=== PATIENT | female | born 1985 | race Caucasian/White ===

== ENCOUNTER 2020-06-18 08:57 | Emergency (ER) | payer OTHER, SELFPAY ==
[2020-06-18 09:14] VITALS: BP 141/81; PULSE 60; RESP 18; TEMP 37.2; O2SAT 98; BMI 29.2
--- NOTE | 2020-06-18 09:22 | ED.NECK ---
HPI - Neck Pain/Injury General Chief Complaint: Neck Pain/Injury Stated Complaint: UPPER BACK PAIN Time Seen by Provider: 06/18/20 09:22 History of Present Illness HPI Narrative: Patient complains of left neck trapezius and upper back pain radiating into the left hand, no weakness no numbness, no chest pain no abdominal pain no shortness of breath Related Data Previous Rx's Medication Instructions Recorded acetaminophen 1,000 mg PO Q6H PRN #30 tab 06/18/20 ibuprofen 600 mg PO Q6H PRN #20 tab 06/18/20 oxycodone 5 mg PO Q6H PRN #10 tab 06/18/20 Allergies Allergy/AdvReac Type Severity Reaction Status Date / Time No Known Allergies Allergy Verified 06/18/20 09:19 [No Known Allergies*] Review of Systems Review of Systems: Positive for left-sided neck and upper back pain Negatives are no fever no chills no dizziness no weakness no headache no numbness or weakness, no changes to bowel or bladder no chest pain no shortness of breath no palpitations no abdominal pain no nausea or vomiting no dysuria no frequency of urination no burning with urination Yes all other systems are reviewed and are negative [facility] Past Medical History Source: nursing notes reviewed Medical History (Updated 06/19/20 @ 00:01 by Background Daemon) No known health problems Social History Social History Advance Directives: No Advance Directives Information Provided: No Patient : No Physical Exam Vital Signs: Vital Signs: Last Vital Signs Temp 99.0 F 06/18/20 09:14 Pulse 57 06/18/20 10:03 Resp 18 06/18/20 10:03 BP 141/81 H 06/18/20 09:14 Pulse Ox 98 06/18/20 09:14 Body Mass Index 29.2 General appearance is no acute distress Head is normocephalic atraumatic The neck has left sided paraspinal tenderness left trapezius tenderness there is also some left upper back tenderness, skin is normal no redness no vesicular rash no wound There is no bony tenderness The chest is clear to auscultation bilateral with full symmetric breath sounds, no tenderness to chest wall Heart no murmur Abdomen soft nontender Back exam there is some left upper back tenderness below the trapezius and between the scapula and the midline, again skin is normal Skin no rashes Neuro no focal motor or sensory deficit, gait 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, 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 and symmetrical and sensation is intact and symmetrical in both hands Course Course Course Narrative: Patient with left-sided neck pain radiating to fingers is treated for symptom relief of cervical radiculopathy and advised to follow up with primary doctor Discharge Plan Discharge Clinical Impression: Cervical radiculopathy Patient Disposition: Home, Self-Care Additional Instructions: Because of the pain shooting down the arm which is usually from a pinched nerve we are starting prednisone which in some patients reduces inflammation around the nerve and helps reduce pain Follow with primary doctor for further evaluation Return to the ER any time if worse Prescriptions: New oxycodone 5 mg tablet 5 mg PO Q6H PRN (Reason: pain) Qty: 10 RF: 0 acetaminophen 500 mg tablet 1,000 mg PO Q6H PRN (Reason: pain) Qty: 30 RF: 0 ibuprofen 600 mg tablet 600 mg PO Q6H PRN (Reason: pain) Qty: 20 RF: 0 Interventions: ED Discharge Assessment Last Done: 06/18/20 10:03 Discharge Date/Time: 06/18/20 10:04
[2020-06-18] MEDS: predniSONE 20 MG TABLET 60 MG PO (09:47)
[2020-06-18] MEDS: Ketorolac Tromethamine 30 MG/ML VIAL IM (09:48)
[2020-06-18 10:03] VITALS: PULSE 57; RESP 18
== END 2020-06-18 10:04 | disposition home or self-care (01) ==
PROVIDERS: Emergency Provider Emergency Medicine; PCP Internal Medicine
DX: M54.12 Radiculopathy, cervical region (principal); M54.6 Pain in thoracic spine
CPT/HCPCS: 96372; 99283; 99284; J1885

== ENCOUNTER 2020-06-24 19:19 | Emergency (ER) | payer OTHER, SELFPAY ==
[2020-06-24 19:47] VITALS: BP 113/72; PULSE 71; RESP 16; TEMP 36.7; O2SAT 96; BMI 29.2
== END 2020-06-24 21:35 | disposition left against medical advice (07) ==
PROVIDERS: Emergency Provider Emergency Medicine; PCP Internal Medicine
DX: M54.6 Pain in thoracic spine (principal)
CPT/HCPCS: 99281; 99284

== ENCOUNTER 2021-09-01 11:15 | Emergency (ER) | payer OTHER, SELFPAY ==
--- NOTE | ~2021-09-01 | XR_ITS ---
EXAMINATION: XR FINGER, LEFT CLINICAL INFORMATION: Laceration first knuckle left fifth digit COMPARISON: None TECHNIQUE: 4 views of the left finger. FINDINGS: The bones and soft tissues are normal. No fracture. Alignment is anatomic. Joint spaces are maintained. XR/XR finger LT min 2V IMPRESSION: Normal finger radiographs.
[2021-09-01 13:18] VITALS: BP 149/90; PULSE 82; RESP 18; TEMP 36.8; O2SAT 100; BMI 27.4
--- NOTE | 2021-09-01 14:17 | ED.WOUNDLAC ---
HPI - Wound/Laceration General Chief Complaint: Wound/Laceration Stated Complaint: cut L hand Time Seen by Provider: 09/01/21 14:12 Source: patient Mode of arrival: ambulatory History of Present Illness HPI narrative: 36-year-old female with no significant past medical history presenting to the ED complaining of laceration to left 5th digit s/p punching glass table around 10:00. Tetanus unknown/out of date. Patient reports associated paresthesias. Reports pain with ROM. Denies injury to other area. Onset (ago): hour(s) Related Data Previous Rx's Medication Instructions Recorded oxycodone 5 mg tablet 5 mg PO Q6H PRN pain #10 tabs 06/18/20 acetaminophen 500 mg tablet 500 mg PO Q6H PRN pain 10 days #30 07/02/20 tabs ibuprofen 600 mg tablet 600 mg PO Q6H PRN pain 10 days #07/02/20 tabs Allergies Allergy/AdvReac Type Severity Reaction Status Date / Time No Known Allergies Allergy Verified 09/01/21 13:17 [No Known Allergies*] Review of Systems Review of Systems: Constitutional: No Weight loss, No Fever, No Chills ENT/Mouth: No Ear Pain, No Nasal Congestion, No sore throat, No Rhinorrhea, No Swallowing Difficulty Cardiovascular: No Chest Pain, No SOB Respiratory: No Cough, No Sputum, No Wheezing Gastrointestinal: No Nausea, No Vomiting, No Diarrhea, No Constipation, No Abdominal pain Genitourinary: No Dysuria, No Urinary Frequency, No Flank Pain Musculoskeletal: + joint pain, No Myalgias, No Joint Swelling Skin: + Skin Lesions, No rash Neuro: No Weakness, No Numbness, + Paresthesias Yes all other systems are reviewed and are negative Constitutional: Constitutional: Reports as per HPI Neurologic: Denies Sensory deficit (Neuro) [facility] Past Medical History Attestation statement: The following information was validated with the patient. Medical History (Updated 09/01/21 @ 15:50 by THOMAS Weaver) No known health problems Social History Social History Alcohol intake: never Advance Directives: No Advance Directives Information Provided: Yes Physical Exam Vital Signs: Vital Signs: Last Vital Signs Temp 98.3 F 09/01/21 13:18 Pulse 82 09/01/21 13:18 Resp 18 09/01/21 13:18 BP 149/90 H 09/01/21 13:18 Pulse Ox 100 09/01/21 13:18 O2 Del Method 09/01/21 13:18 BMI result Body Mass Index 27.4 Const: General: cooperative, healthy appearing and no acute distress Orientation/consciousness: patient oriented x3 Limitations: no limitations HEENT: Head: Yes normal to inspection and Yes atraumatic Ears: hearing grossly normal bilaterally General nose exam: Normal external nose present Face and sinus: Yes normal facial exam Eyes: General: appearance normal, both eyes and all related structures EOM: EOMs intact bilaterally Neck: Neck: Yes normal visual inspection and Yes no meningeal signs Resp: Effort & Inspection: normal respiratory effort and no respiratory distress Cardio: Rate: regular rate Heart sounds: S1 normal heart sound present and S2 normal heart sound present Peripheral pulses: radial pulses present and ulnar radial pulses present Skin: Rashes: no rashes Neuro: General: patient oriented x3, tone normal, moves all extremities and no meningeal signs Gait exam (Neuro): Normal gait present Sensory Exam: No Sensory deficit (Neuro) Extrem: Other: 1.5 cm laceration noted to left MCP. No visible underlying structures. Full range of motion to digit intact. Sensation intact to light touch. [id number]-[id number] opposition intact Course Course Course Narrative: XR finger LT min 2V IMPRESSION: Normal finger radiographs. Results discussed with patient including worrisome signs and symptoms and strict return precautions, and when to return to the emergency department. They verbalized understanding and feel safe for discharge at this time. MDM - Wound/Laceration MDM Narrative Medical decision making narrative: 36-year-old female with no significant past medical history presenting to the ED complaining of laceration to left 5th digit s/p punching glass table around 10:00AM. On exam vital signs stable, NAD, nontoxic appearing, physical exam as above, laceration needing repair. Will update tetanus. Plan: X-ray to rule out fracture/foreign body, tetanus update, repair wound Differential Diagnosis Differential diagnosis: Likely laceration Medical Records Attestation: I reviewed the patient's medical records. Lab Data Attestation: I reviewed the patient's lab results. Procedures Laceration Laceration 1: Site: hand Side (If applicable): left Size (cm): 1.5 Description: linear Depth: simple, single layer Local Anesthetic: lidocaine 1% Amount of anesthesia used (mL): 3.5 Pre-repair: wound explored Skin layer closed with: nylon Size (cm): 4-0 Number of sutures: 3 Technique: simple, interrupted Discharge Plan Discharge Clinical Impression: Laceration Patient Disposition: Home, Self-Care Instructions: Finger Laceration (ED) Additional Instructions: Your finger x-ray was unremarkable Your wounds were repaired today in the emergency department. Keep dry and clean. You need to return to any emergency department or urgent care in 7-10 days for suture removal Apply bacitracin and or Neosporin daily Once sutures are removed apply anti scar cream like Mederma If area begins look infected, is red, there is drainage, streaking, or you have fever please return to the emergency department Prescriptions: No Action acetaminophen 500 mg tablet 500 mg PO Q6H PRN (Reason: pain) 10 Days Qty: 30 2RF ibuprofen 600 mg tablet 600 mg PO Q6H PRN (Reason: pain) 10 Days Qty: 30 1RF Rx Instructions: TAKE WITH FOOD oxycodone 5 mg tablet 5 mg PO Q6H PRN (Reason: pain) Qty: 10 0RF Rx Instructions: Narcotic, no driving for 6 hours after taking this medication Referrals: ED Physician,Generic [Emergency Provider] - 1 week (Return to any emergency department or urgent care in 7-10 days for suture removal)
[2021-09-01] MEDS: Diphth,Pertus(ACell),Tet Adult 0.5 ML SYRINGE IM (15:49)
[2021-09-01] MEDS: Lidocaine HCl 1 % MPF 5 ML VIAL SUBCUT (15:49)
== END 2021-09-01 16:21 | disposition home or self-care (01) ==
PROVIDERS: Emergency Provider Emergency Medicine; PCP Nurse Practitioner Family
DX: S61.217A Laceration without foreign body of left little finger without damage to nail, initial encounter (principal); W25.XXXA Contact with sharp glass, initial encounter; Y93.9 Activity, unspecified; Y92.9 Unspecified place or not applicable; Y99.9 Unspecified external cause status
CPT/HCPCS: 12001; 73140; 90471; 90715; 99283; 99284

== ENCOUNTER 2023-01-16 12:40 | Outpatient (AMB) | payer OTHER, SELFPAY ==
--- NOTE | 2023-01-16 13:00 | A.OFFPC_ITS ---
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 Pt have not seen a PCP for over 20 years. 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 Accompanied by: Self / Same As Patient Is last menstrual period known: Yes Last menstrual period: 01/08/23 Allergies No Known Allergies [No Known Allergies*] Allergy (Verified 01/16/23 13:19) Medication List - Last Reconciled 01/16/23 by HOLGER Mcqueen No Known Home Meds Tobacco use date assessed: 01/16/23 Dental Screening Dental Screen Date: 01/16/23 Did you have a dental visit in the last 12 months?: No Did you have a dental problem in the last 6 months where you did not have access to dental care?: No Was dental information given to patient?: Patient declined HPI HPI Comments 2 History of Present Illness0 Details 37-year-old female new patient presents today for physical exam. Past medical history significant for chronic upper back pain and cervical degenerative disc disease. Patient has been seen in the emergency room for this in the past. Patient denies any pain at this time. Will send ibuprofen 600 mg as needed for pain. 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 Patient scoring positive on PHQ-9 and suzanna-7, patient reports she is currently having anxiety and some depression as she is going through a divorce after being for 20 years. Offered referral to counseling patient declined the need for counseling or medication at this time states she does have family members that she can reach out to to talk with about how she is feeling. Patient reports raised 1st matter X 2 located to right abdomen 1 located on left biceps. Patient reports right abdomen raised nevi are becoming bothersome as certain way she sits it will get caught in her bra and causes discomfort, requesting referral to dermatology for removal. Referral entered. Unknown last Pap smear, referral entered OBGYN. Recommended eye exam. Fasting lab work ordered. [facility] Medical History (Updated 01/16/23 @ 13:37 by HOLGER Mcqueen) Encounter for prophylactic removal of fallopian tube No known health problems Family History Mother Hypothyroidism Acute arthritis Father No problems noted. 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 1. Little interest or pleasure in doing things: several days 2. Feeling down, depressed, or hopeless: nearly every day 3. Trouble falling or staying asleep, or sleeping too much: more than half the days 4. Feeling tired or having little energy: several days 5. Poor appetite or overeating: more than half the days 6. Feeling bad about yourself - or that you are a failure or have let yourself or your family down: more than half the days 7. Trouble concentrating on things, such as reading the newspaper or watching television: nearly every day 8. Moving or speaking so slowly that other people could have noticed. Or the opposite - being so fidgety or restless that you have been moving around a lot more than usual: not at all 9. Thoughts that you would be better off or of hurting yourself in some way: not at all Total score: 14 Depression Screening Interpretation: Positive Depression Screening Done: Yes 11090 - PHQ-9 Billing: Yes Source: Developed by Drs. Andrew Gonzales, Margaret Noel, Jhon Concepcion and colleagues, with an educational jmi from [employer]. Thrive Questionnaire Date Thrive assessed: 01/16/23 I am a: Patient What is your living situation today?: I have a steady place to live Within the past 12 months, did the food you bought not last and you didn't have the money to get more?: Never true Within the past 12 months, did you worry whether your food would run out before you got money to buy more?: Never true Do you have trouble paying for medicines?: No Do you have trouble getting transportation to medical appointments?: No Do you have trouble paying your heating and electricity bill?: No Do you have trouble taking care of your child, family member or friend?: No Do you have trouble with day-to-day activities such as bathing, preparing meals, shopping, managing finances, etc.?: No Are you currently unemployed and looking for a job?: No Are you interested in more education?: No Please select the resources that you would like help with: None Currently or been in a relationship where the following occur: no concerns reported AUDIT C Alcohol Use Questionnaire (AUDIT-C) 1. How often do you have a drink containing alcohol?: 2-4 times a month 2. How many drinks containing alcohol do you have on a typical day when you are drinking?: 3 or 4 3. How often do you have six or more drinks on one occasion?: Never Total Score: 3 SUZANNA-7 AMB Questionnaire SUZANNA-7 Date SUZANNA - 7 assessed: 01/16/23 Feeling nervous, anxious, or on edge: 3 = Nearly every day Not being able to stop or control worryin = Nearly every day Worrying too much about different things: 3 = Nearly every day Trouble relaxin = Nearly every day Being so restless that it is hard to sit still: 0 = Not at all Becoming easily annoyed or irritable: 3 = Nearly every day Feeling afraid as if something awful might happen: 1 = Several days Total SUZANNA-7 score (0-4 normal; 5-9 mild; 10-14 moderate; 15-21 severe): 16 Source: Developed by Drs. Andrew Gonzales, Margaret Noel, Jhon Concepcion and colleagues, with an educational jim from [employer]. SUZANNA-7 Assessment Billing SUZANNA-7 Assessment Tool: SUZANNA-7 Assessment 69433 Review of Systems Const Denies chills, Denies fatigue, Denies fever(s) and Denies poor appetite Eyes Denies no additional complaints ENT Reports Normal hearing present Card Denies chest pain, Denies syncope, Denies rapid heart rate and Denies dyspnea Resp Denies cough and Denies dyspnea GI Denies change in stool character, Denies constipation, Denies diarrhea, Denies nausea and Denies vomiting Denies urinary frequency, Denies dysuria and Denies urinary urgency Neuro Reports Normal hearing present, Denies confusion and Denies syncope Psych Denies confusion Endo Denies fatigue Physical exam (Primary Care) Vital Signs: Last Vital Signs Pulse 70 01/16/23 13:09 BP 100/62 01/16/23 13:09 Pulse Ox 96 01/16/23 13:09 Oxygen Delivery Method Room Air 01/16/23 13:09 BMI result Body Mass Index 26.5 Tobacco/Smoking Status: Tobacco use Status Tobacco use date assessed 01/16/23 01/16/23 13:08 Patient Tobacco Use Status Current everyday Tobacco 01/16/23 13:21 Tobacco use type Cigarette 01/16/23 13:21 e-Cigarette/Vaping Use Never Used 01/16/23 13:21 PHQ-9: PHQ-9 Score PHQ-9: Total score 14 01/16/23 14:15 Depression Screening Interpretation: Positive Thrive Assessment: Date of Thrive Assessment Date Thrive assessed 01/16/23 01/16/23 13:08 Currently or been in a relationship where the following occur: no concerns reported Const General: cooperative and healthy appearing; No acute distress or confusion Orientation/consciousness: patient oriented x3 and No confusion HENMT Head: Yes normocephalic and Yes atraumatic Ears: external ears normal and TM's normal bilaterally General nose exam: Normal external nose present and Normal nasal mucous membranes and turbinates present Face and sinus: Yes normal facial exam and Yes sinuses nontender Mouth: moist mucous membranes Throat: Yes tonsils normal Eyes Conjunctivae: conjunctivae normal Sclerae: sclerae normal Pupils: Equal, round and reactive pupils present and Pupils normal by confrontation EOM: EOMs intact bilaterally Direct Ophthalmoscopy: normal light reflex Neck Neck: Yes no lymphadenopathy and Yes supple Thyroid: Thyroid normal Chest Chest palpation & inspection: normal inspection of the chest Resp Effort & Inspection: normal respiratory effort Auscultation: clear to auscultation bilaterally, no crackles, no rhonchi and no wheezes Cardio Rate: regular rate Rhythm: regular rhythm Peripheral pulses: radial pulses present and dorsalis pedis present GI Inspection: Yes normal to inspection Palpation (GI): Soft to palpation, nontender and No hepatosplenomegaly present Auscultation: normoactive bowel sounds Skin General skin exam: no rashes or lesions noted Full body images: 2 1. Raised nevi 2. Raised nevi 3. Raised nevi Neuro General: patient oriented x3 and No confusion Cranial nerves: Yes CN's II-XII intact bilaterally, Yes Equal, round and reactive pupils present and Yes Normal hearing present Cognition (Neuro): normal cognition Gait exam (Neuro): Normal gait present Motor exam (neuro): 5/5 motor strength present throughout Deep tendon reflexes (DTR's): Right brachioradialis reflex intensity grade: 2+, Left brachioradialis reflex intensity grade: 2+, Right patellar reflex intensity grade: 2+ and Left patellar reflex intensity grade: 2+ Extrem General: No edema Assessment and Plan Assessment & Plan (1) Degenerative disc disease, cervical: Code(s): M50.30 - Other cervical disc degeneration, unspecified cervical region Plan: Ibuprofen 600 mg sent to patient pharmacy to use as needed for pain. Patient advised to take medication with food to prevent GI upset. Offered referral to physical therapy for neck pain however patient declines at this time. Patient reports she currently follows with the chiropractor periodically for this. (2) Chronic upper back pain: Code(s): M54.9 - Dorsalgia, unspecified; G89.29 - Other chronic pain Plan: Ibuprofen sent to patient's pharmacy. (3) Atypical nevi: Code(s): D22.9 - Melanocytic nevi, unspecified Plan: Referral entered to dermatology as requested by patient for removal. (4) Physical exam, annual: Code(s): Z00.00 - Encounter for general adult medical examination without abnormal findings Plan: Fasting blood work ordered. Eye exam recommended. Referral entered OBGYN for Pap smear screening. Plan Follow-up in 1 year sooner if needed Orders: Orders 2 Comprehensive [place]. Panel Fast Today Z13.1 - Encounter for screening for diabetes mellitus Lipid Panel Today Z13.220 - Encounter for screening for lipoid disorders TSH reflex Free T4 Today Z13.29 - Encounter for screening for other suspected endocrine disorder Vitamin D 25-OH Total Today Z13.21 - Encounter for screening for nutritional disorder Complete Blood Count Auto Diff Today Z13.0 - Encounter for screening for diseases of the blood and blood-forming organs and certain disorders involving the immune mechanism Referrals 2 Dermatology Referral D22.9 - Melanocytic nevi, unspecified [employer] Referral Z12.4 - Encounter for screening for malignant neoplasm of cervix Medications: New 2 ibuprofen 600 mg PO Q8H PRN 30 tabs 0RF pain G89.29 - Other chronic pain, M50.30 - Other cervical disc degeneration, unspecified cervical region, M54.9 - Dorsalgia, unspecified Coding Level of Care Code New Pt Prev Care 18-39yr([id number] Diagnoses Degenerative disc disease, cervical M50.30 Chronic upper back pain M54.9; G89.29 Atypical nevi D22.9 Physical exam, annual Z00.00 Additional Codes SUZANNA-7 Assessment Billing - SUZANNA-7 Assessment Tool: SUZANNA-7 Assessment [id number] ([id number])
[2023-01-16 13:09] VITALS: BP 100/62; PULSE 70; O2SAT 96; BMI 26.5
== END 2023-01-16 13:39 | disposition home or self-care (01) ==
PROVIDERS: PCP Nurse Practitioner Family; Visit Provider Nurse Practitioner Family
DX: M50.30 Other cervical disc degeneration, unspecified cervical region (principal); M54.9 Dorsalgia, unspecified; G89.29 Other chronic pain; D22.9 Melanocytic nevi, unspecified; Z00.00 Encounter for general adult medical examination without abnormal findings
CPT/HCPCS: 99385

== ENCOUNTER 2023-01-19 08:44 | Outpatient (REF) | payer OTHER, SELFPAY ==
[2023-01-19 09:24] LABS: MANUAL DIFF FLAG NO
[2023-01-19 10:01] LABS: Basophils Percent Auto 0.5 % (0-2); Eosinophils Absolute Auto 0.5 X10*3/uL (0.0-0.4); Eosinophils Percent Auto 5.8 % (0-4); Hematocrit 43.1 % (37.0-47.0); Hemoglobin 14.6 g/dl (12.0-16.0); Imm Gran Abs Auto 0.01 X10*3/uL (0.00-0.03); Imm Gran Pct Auto 0.1 % (0.0-0.4); Lymphocytes Percent Auto 25.8 % (20-40); Mean Corpuscular HGB Conc 33.9 g/dl (31.0-35.0); Mean Corpuscular Volume 97.3 fL (80.0-98.0); Mean Platelet Volume 9.6 fL (9.4-12.3); Monocytes Absolute Auto 0.6 X10*3/uL (0.1-1.2); Monocytes Percent Auto 7.1 % (2-11); Neutrophils Absolute Auto 4.7 x10*3/uL (2.0-8.3); Neutrophils Percent Auto 60.7 % (45-73); Platelet Count 207 X10*3/uL (160-400); Red Blood Count 4.43 X10*6/uL (4.20-5.50); Red Cell Distribution Width 12.7 % (11.0-16.0); White Blood Count 7.8 X10*3/uL (4.8-10.8)
[2023-01-19 11:10] LABS: Alanine Aminotransferase 16 U/L (0-31); Albumin Level 4.2 g/dL (3.5-5.0); Alkaline Phosphatase 49 U/L (39-117); Anion Gap 10 (12-20); Aspartate Amino Transferase 17 U/L (5-31); Bilirubin Total 0.5 mg/dL (0.0-1.0); Blood Urea Nitrogen 16 mg/dL (9-16); Calcium 8.9 mg/dL (8.4-10.2); Carbon Dioxide 24 mmol/L (22-29); Chloride 111 mmol/L (96-108); Cholesterol 155 mg/dL (<200); Estimated Glomerular Filt Rate > 60; Glucose Fasting 98 mg/dL (60-99); HDL Cholesterol 46 mg/dL (>40); LDL Cholesterol Calculated 100 mg/dL (<100); Potassium 4.2 mmol/L (3.3-5.1); Sodium 141 mmol/L (135-145); Total Protein 6.8 g/dL (6.5-8.0); Triglycerides 47 mg/dL (<150)
[2023-01-19 11:11] LABS: Vitamin D 25-OH Total 26.3 ng/mL (>30)
== END 2023-01-19 08:45 | disposition home or self-care (01) ==
LOC: HO.LAB 08:44
PROVIDERS: PCP Nurse Practitioner Family; Visit Provider Nurse Practitioner Family
DX: Z13.29 Encounter for screening for other suspected endocrine disorder (principal); Z13.21 Encounter for screening for nutritional disorder; Z13.220 Encounter for screening for lipoid disorders; Z13.0 Encounter for screening for diseases of the blood and blood-forming organs and certain disorders involving the immune mechanism
CPT/HCPCS: 36415; 80053; 80061; 82306; 84443; 85025

== ENCOUNTER 2023-02-12 11:28 | Emergency (ER) | payer OTHER, SELFPAY ==
--- NOTE | ~2023-02-12 | XR_ITS ---
EXAMINATION: XR CHEST CLINICAL INFORMATION: Cough. Wheezing. COMPARISON: None available. TECHNIQUE: 2 views of the chest were obtained. FINDINGS: The lungs are clear. The cardiomediastinal silhouette is normal in size. There is no pleural effusion or pneumothorax. No acute osseous abnormality. XR/XR chest 2V IMPRESSION: No acute cardiopulmonary findings.
--- NOTE | 2023-02-12 12:02 | ED.URI ---
HPI - URI/Sore Throat General Chief Complaint: Upper Respiratory Symptoms Stated Complaint: Cold symptoms Time Seen by Provider: 02/12/23 15:19 Source: patient Mode of arrival: ambulatory Limitations: no limitations History of Present Illness HPI Narrative: Patient is a 29-year-old female presenting to the emergency department with complaint of ongoing cough for the past week. States that when symptoms began she had body aches, fever, chest tightness. Reports those symptoms have resolved but cough has persisted. States cough is nonproductive. Denies sore throat, ear pain. Has been using [id number] cough medicine with little relief. Daughter is sick with similar symptoms. MD elicited complaint: cough Onset (ago): week(s) Consistency: intermittent Able to tolerate fluids by mouth: Yes Relieving factors: nothing Context: sick contacts Associated symptoms: denies other symptoms Treatments prior to arrival: cold medicine Related Data Previous Rx's Medication Instructions Recorded ibuprofen 600 mg tablet 600 mg PO Q8H PRN pain #30 tabs 01/16/23 azithromycin 250 mg tablet See Rx Instructions PO .COMPLEX #6 02/12/23 tabs benzonatate 100 mg capsule 100 mg PO TID PRN cough #14 caps 02/12/23 Allergies Allergy/AdvReac Type Severity Reaction Status Date / Time No Known Allergies Allergy Verified 02/12/23 12:05 [No Known Allergies*] Review of Systems Review of Systems: As per HPI. Yes all other systems are reviewed and are negative Constitutional: Constitutional: Reports as per HPI [facility] Past Medical History Medical History (Updated 02/12/23 @ 16:10 by Vera Wayne NP) Encounter for prophylactic removal of fallopian tube No known health problems Family History Family History Mother Hypothyroidism Acute arthritis Father No problems noted. 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 Blood pressure normal. Heart rate normal. Respiratory rate normal. Temperature normal. Oxygen saturation normal. Const: General: cooperative, healthy appearing and no acute distress Orientation/consciousness: oriented to person, oriented to place, oriented to time and patient oriented x3 Limitations: no limitations HEENT: Head: Yes normocephalic and Yes atraumatic Ears: external ears normal, TM's normal bilaterally and EAC's normal General nose exam: Normal external nose present Face and sinus: Yes face symmetric Mouth: oropharynx normal and moist mucous membranes Throat: Yes posterior oropharynx normal and Yes uvula midline Eyes: Pupils: Equal, round and reactive pupils present Neck: Neck: Yes normal visual inspection and Yes supple Lymphatic: no lymphadenopathy noted Resp: Effort & Inspection: normal respiratory effort and able to speak in complete sentences Auscultation: clear to auscultation bilaterally and wheezes scattered wheezes Cardio: Rate: regular rate Rhythm: regular rhythm Heart sounds: S1 normal heart sound present and S2 normal heart sound present GI: Palpation (GI): Soft to palpation and nontender Auscultation: normoactive bowel sounds : General: Yes no CVA tenderness Back/Spine/Pelvis: Back: no CVA tenderness Skin: General skin exam: elasticity normal and turgor normal Neuro: General: oriented to person, oriented to place, oriented to time, patient oriented x3, moves all extremities, no focal motor deficits and CN's II-XI intact bilaterally Cranial nerves: Yes Equal, round and reactive pupils present Cognition (Neuro): normal cognition Extrem: General: Yes full ROM, Yes no pedal edema and Yes no calf tenderness Psych: Mental Status: mental status grossly normal Affect: normal affect Thought process: Normal thought process present Course Course Course Narrative: This is a rapid medical exam. Deferred additional HPI, ROS, PE to primary provider. 37 yo female with no known medical history here with URI symptoms x 1 week. Negative home COVID testing. Will send viral testing, strep testing, CXR. VSS Medical Decision Making Medical Decision Making [facility] Narrative: Patient is a 29-year-old female presenting to the emergency department with complaint of ongoing cough for the past week. On exam patient is awake, A+Ox3, VS WNL, afebrile, normal neurological exam without focal deficits, physical exam findings as above. Given reported symptoms and physical exam findings, initial differential includes viral URI, COVID, influenza, strep pharyngitis, bronchitis, pneumonia. Swabs for flu, strep, COVID all negative. X-ray chest notable for no evidence of pneumonia. My interpretation is in agreement with the radiologist's interpretation. Will treat for bronchitis at this time with azithromycin and benzonatate. Instructed patient to follow-up with her primary care provider. Return precautions discussed at bedside. Patient verbalized understanding of and agreement plan. Differential Diagnosis Differential Diagnoses: The differential diagnosis associated with the presentation includes As per [facility]. Lab Data [facility] Lab Attestation statement: I reviewed the patient's lab results. As per [facility]. Labs: Lab Results 02/12/23 Range/Units 12:14 Influenza Type A (PCR) NEGATIVE (Negative) Influenza Type B (PCR) NEGATIVE (Negative) RSV RNA Qual (PCR) NEGATIVE (Negative) SARS-CoV-2 RNA (RT-PCR) NEGATIVE (Negative) S. pyogenes GrpA [place] Negative (Negative) Independent Interpretation I performed an independent interpretation of an: Plain X-Ray Interpretation: No evidence of pneumonia on chest x-ray Radiology Impression Discussion of test interpretation with radiology: I have reviewed the radiologist's reading. Radiologist Impression: XR/XR chest 2V IMPRESSION: No acute cardiopulmonary findings. External Record Review External record reviewed: Inpatient record, Office record and Outpatient record Prescription Management I considered prescription management with: Antibiotic and Other Discharge Plan Discharge Clinical Impression: Bronchitis Patient Disposition: Home, Self-Care Instructions: Acute Bronchitis (ED) Additional Instructions: You were evaluated in the emergency department today for cough and shortness of breath. You are being treated for bronchitis with an antibiotic, please complete the full course as prescribed. You are also being prescribed cough medicine which you can use every 8 hours as needed. Please follow-up with your primary care provider this week. Return to the emergency department if you develop worsening shortness of breath, difficulty breathing, chest pain, fever not improved with Tylenol or ibuprofen, or any other concerning symptoms. Prescriptions: New azithromycin 250 mg tablet See Rx Instructions .ROUTE .COMPLEX Qty: 6 0RF Rx Instructions: For 250 mg dose pack: take 500 mg today (day 1), then 250 mg for 4 days (days 2-5) benzonatate 100 mg capsule 100 mg PO TID PRN (Reason: cough) Qty: 14 0RF No Action ibuprofen 600 mg tablet 600 mg PO Q8H PRN (Reason: pain) Qty: 30 0RF
[2023-02-12 12:03] VITALS: BP 129/70; PULSE 68; RESP 20; TEMP 36.7; O2SAT 98; BMI 25.8
[2023-02-12 12:28] LABS: IDNOW Serial# 08D9AD1C; Strep A Nucleic Acid Negative (Negative)
[2023-02-12 13:15] LABS: Influenza A PCR NEGATIVE (Negative); Influenza B PCR NEGATIVE (Negative); Resp Syncy Virus RNA Qual PCR NEGATIVE (Negative); SARS COV2 PCR INHOUSE NEGATIVE (Negative)
[2023-02-12 15:55] VITALS: BP 131/88; PULSE 62; RESP 19; TEMP 36.7; O2SAT 98
== END 2023-02-12 17:09 | disposition home or self-care (01) ==
PROVIDERS: Nurse Practitioner Family; Emergency Provider Emergency Medicine; PCP Nurse Practitioner Family
DX: J40 Bronchitis, not specified as acute or chronic (principal); Z20.822 Contact with and (suspected) exposure to COVID-19; Z20.828 Contact with and (suspected) exposure to other viral communicable diseases; F17.210 Nicotine dependence, cigarettes, uncomplicated; F12.90 Cannabis use, unspecified, uncomplicated
CPT/HCPCS: 0241U; 71046; 87651; 99283

== ENCOUNTER 2023-05-19 07:01 | Emergency (ER) | payer OTHER, SELFPAY ==
--- NOTE | ~2023-05-19 | XR_ITS ---
EXAMINATION: XR SHOULDER, LEFT CLINICAL INFORMATION: Fall. COMPARISON: None available. TECHNIQUE: Three views of the left shoulder. FINDINGS: There is mild acromioclavicular osteoarthritis. Glenohumeral joint is well preserved. No fracture. Alignment is anatomic. Soft tissues are normal with no abnormal calcifications. XR/XR shoulder LT min 2V IMPRESSION: No acute fractures or malalignment. Mild acromioclavicular osteoarthritis.
[2023-05-19 07:02] VITALS: BP 129/87; PULSE 73; RESP 18; TEMP 36.6; O2SAT 96; BMI 25.3
--- NOTE | 2023-05-19 07:31 | ED_ITS ---
HPI - General Adult General Chief complaint: Fall Stated complaint: L Shoulder Inj Time Seen by Provider: 05/19/23 07:22 Source: patient Mode of arrival: ambulatory Limitations: no limitations History of Present Illness HPI narrative: Patient is a 38-year-old right hand dominant female presenting to the emergency department with complaint of left shoulder pain. States that she was in the shower last night when she slipped, and grabbed onto the shower rail with her left arm. She reports feeling a tearing sensation and complains of pain to both anterior and posterior shoulder with decreased range of motion. Denies any numbness or tingling. Took ibuprofen prior to arrival. 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 MD complaint: left shoulder pain Onset (ago): hour(s) Location: left and upper extremity Radiation: non-radiation Severity: severe Quality: aching Pain Consistency: colicky Relieving factors: rest Exacerbating factors: movement Associated symptoms: denies other symptoms Treatments prior to arrival: NSAID Related Data Previous Rx's ?Medication ?Instructions ?Recorded ibuprofen 600 mg tablet 600 mg PO Q8H PRN pain #30 tabs 01/16/23 azithromycin 250 mg tablet See Rx Instructions PO .COMPLEX #6 02/12/23 tabs benzonatate 100 mg capsule 100 mg PO TID PRN cough #14 caps 02/12/23 lidocaine 5 % topical patch 1 patch topical DAILY #15 ea 05/19/23 Allergies Allergy/AdvReac Type Severity Reaction Status Date / Time No Known Allergies Allergy Verified 05/19/23 07:05 [No Known Allergies*] Review of Systems Review of Systems: As per HPI. Yes all other systems are reviewed and are negative Constitutional: Constitutional: Reports as per HPI [facility] Past Medical History Medical History (Updated 05/19/23 @ 07:55 by Vera Wayne NP) Encounter for prophylactic removal of fallopian tube No known health problems Family History Family History Mother Hypothyroidism Acute arthritis Father No problems noted. 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 Blood pressure normal. Heart rate normal. Respiratory rate normal. Temperature normal. Oxygen saturation normal. Const General: cooperative, healthy appearing and no acute distress Orientation/consciousness: oriented to person, oriented to place, oriented to time and patient oriented x3 Limitations: no limitations HENMT Head: Yes normocephalic and Yes atraumatic Ears: external ears normal General nose exam: Normal external nose present Face and sinus: Yes face symmetric Mouth: oropharynx normal and moist mucous membranes Throat: Yes uvula midline Eyes Pupils: Equal, round and reactive pupils present Neck Neck: Yes normal visual inspection and Yes supple Resp Effort & Inspection: normal respiratory effort and able to speak in complete sentences Auscultation: clear to auscultation bilaterally Cardio Rate: regular rate Rhythm: regular rhythm Heart sounds: S1 normal heart sound present and S2 normal heart sound present GI Palpation (GI): Soft to palpation and nontender Auscultation: normoactive bowel sounds General: Yes no CVA tenderness Back/Spine/Pelvis Back: no CVA tenderness Skin General skin exam: elasticity normal and turgor normal Neuro General: oriented to person, oriented to place, oriented to time, patient oriented x3, moves all extremities, no focal motor deficits and CN's II-XI intact bilaterally Cranial nerves: Yes Equal, round and reactive pupils present Cognition (Neuro): normal cognition Extrem General: Yes full ROM, Yes no pedal edema and Yes no calf tenderness Left upper extremity: shoulder/upper arm Details: inspection abnormal, tenderness Location: of the A-C joint, axillary nerve sensory function normal and abnormal ROM Details: with range as follows (abduction to 90deg, unable to externally rotate r/t pain, forward flexion to 130degrees); no swelling and hand Details: vascular exam Details: radial pulse present Psych Mental Status: mental status grossly normal Affect: normal affect Thought process: Normal thought process present Medical Decision Making Medical Decision Making [facility] Narrative: Patient is a 38-year-old right hand dominant female presenting to the emergency department with complaint of left shoulder pain. On exam patient is awake, A+Ox3, VS WNL, afebrile, normal neurological exam without focal deficits, physical exam findings as above. Given reported symptoms and physical exam findings, initial differential includes left shoulder strain, sprain, rotator cuff injury. Less likely fracture or dislocation. X-ray notable for no evidence of fracture or dislocation. My interpretation is in agreement with the radiologist's interpretation. Advised patient to apply ice to the area int ermittently, alternate Tylenol and ibuprofen, rest. Will prescribe topical lidocaine patches and refer to orthopedics for ongoing symptoms. Return precautions discussed at bedside. Patient verbalized understanding of and agreement with plan of care. Differential Diagnosis Differential Diagnoses: The differential diagnosis associated with the presentation includes As per MDM. Independent Interpretation I performed an independent interpretation of an: Plain X-Ray Interpretation: No evidence of fracture or dislocation to left shoulder Radiology Impression Discussion of test interpretation with radiology: I have reviewed the radiologist's reading. Radiologist Impression: XR/XR shoulder LT min 2V IMPRESSION: No acute fractures or malalignment. Mild acromioclavicular osteoarthritis. External Record Review External record reviewed: Inpatient record, Office record and Outpatient record Prescription Management I considered prescription management with: Pain Medication Discharge Plan Discharge Clinical Impression: Left shoulder strain Patient Disposition: Home, Self-Care Instructions: Lidocaine Patch (On the skin), Muscle Strain (DC), Rotator Cuff Injury (ED), R.I.C.E. Treatment (ED), Cold Compress or Soak (ED), Rotator Cuff Injury Exercises (DC) Additional Instructions: You have been evaluated in the emergency department today for shoulder pain. Your evaluation did not find evidence of medical conditions requiring emergent intervention at this time. Please rest and ice your shoulder, and resume normal activities as tolerated. Apply ice for 10-15 minutes at a time several times daily, do not apply ice directly to skin. We recommend you take 600mg ibuprofen every 6 hours or 650mg Tylenol every 6 hours as needed for pain. If needed you can alternate these medications as they take 1 medication every 3 hours. For instance at noon take ibuprofen, then at 3:00 p.m. take Tylenol, then at 6:00 p.m. take ibuprofen. You are being prescribed topical lidocaine patches which he can wear for up to 12 hours in a 24 hour period. Do not apply heat directly over the patches. Please schedule an appointment for follow-up with your primary care provider this week. Return to the emergency department if you experience worsening pain, numbness, tingling, change of color in your arm/hand, or any other concerning symptoms. If symptoms persist beyond the next 1-2 weeks, follow-up with orthopedics. Prescriptions: New lidocaine 5 % adhesive patch,medicated 1 patch topical DAILY Qty: 15 0RF Rx Instructions: leave on most painful area for up to 12 hrs No Action azithromycin 250 mg tablet See Rx Instructions .ROUTE .COMPLEX Qty: 6 0RF Rx Instructions: For 250 mg dose pack: take 500 mg today (day 1), then 250 mg for 4 days (days 2-5) benzonatate 100 mg capsule 100 mg PO TID PRN (Reason: cough) Qty: 14 0RF ibuprofen 600 mg tablet 600 mg PO Q8H PRN (Reason: pain) Qty: 30 0RF Referrals: [facility] [place] [facility] [Provider Group] Stand Alone Forms: Work/School Release Interventions: ED Discharge Assessment Last Done: 05/19/23 08:24 Discharge Date/Time: 05/19/23 08:24 Print Language: Mohawk
[2023-05-19 08:24] VITALS: BP 129/87; PULSE 73; RESP 18; TEMP 36.6; O2SAT 96
== END 2023-05-19 08:24 | disposition home or self-care (01) ==
PROVIDERS: Emergency Provider Student in an Organized Health Care Education/Training Program
DX: S46.912A Strain of unspecified muscle, fascia and tendon at shoulder and upper arm level, left arm, initial encounter (principal); M25.512 Pain in left shoulder; W18.2XXA Fall in (into) shower or empty bathtub, initial encounter; Y93.E1 Activity, personal bathing and showering; Y92.9 Unspecified place or not applicable; Y99.8 Other external cause status
CPT/HCPCS: 73030; 99282; 99283

== ENCOUNTER 2023-06-01 07:52 | Outpatient (AMB) | payer OTHER, SELFPAY ==
--- NOTE | 2023-06-01 07:54 | MHC.OFFVIS ---
Vital Signs 06/01/23 07:55 Height 5 ft 2 in Weight 138 lb BMI 25.2 Intake Visit Reasons: N/P Left shoulder strain 05/16/23 Intake Note: Cecelia is a 38 year old right hand dominant female who presents today as a new patient with complaints of left shoulder pain. Patient reports that on 05/16/23 she slipped and fell in the shower and grabbed onto the shower rail to catch herself. When she caught herself she reports hearing a tearing sensation. Occasional numbness in the left limb. Her pain comes and goes worse with acitivity, limited ROM due to pain Allergies No Known Allergies [No Known Allergies*] Allergy (Verified 06/01/23 07:55) HPI HPI N/P Left shoulder strain 05/16/23: Details: 38-year-old right hand dominant female who presents in the office today, as a new patient, for an evaluation of left shoulder pain. Patient presented to the ED on 05/19/2023 status post slipping in the shower when she went to grab the shower rail with the left upper extremity, which occurred on 05/18/2023. X-rays were obtained. She was prescribed Lidocaine patches and referred to Orthopedics. While in the office today the patient reports she slipped and fell in the shower where she tried to grab onto the shower rail to catch herself. Claims when she caught herself, she heard a tear. Confirms occasional numbness in the left upper extremity. She reports an increase in pain with activities and limited ROM due pain. [facility] Medical History (Updated 06/01/23 @ 08:38 by Smitha Emery PA-C) No known health problems Surgical History (Updated 06/01/23 @ 07:59 by Kimberly Hampton CMA) Encounter for prophylactic removal of fallopian tube Family History Mother Hypothyroidism Acute arthritis Father No problems noted. 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 No ecchymosis, erythema, or edema. Forward flexion lacking 15 degrees. Abduction to 90 degrees. Able to reach T-12. Full external rotation. Pain with cross-body reach. 4/5 strength with empty can. Negative drop arm. NVI. Assessment & Plan Assessment & Plan (1) AC joint derangement: Code(s): M24.9 - Joint derangement, unspecified Category: Medical (2) Painful arc syndrome of left shoulder: Code(s): M75.102 - Unspecified rotator cuff tear or rupture of left shoulder, not specified as traumatic Category: Medical Plan Ms. Bob is a 38-year-old right hand dominant female who presents in the office today, as a new patient, for an evaluation of left shoulder pain. Patient presented to the ED on 05/19/2023 status post slipping in the shower when she went to grab the shower rail with the left upper extremity, which occurred on 05/18/2023. X-rays were obtained. She was prescribed Lidocaine patches and referred to Orthopedics. While in the office today the patient reports she slipped and fell in the shower where she tried to grab onto the shower rail to catch herself. Claims when she caught herself, she heard a tear. Confirms occasional numbness in the left upper extremity. She reports an increase in pain with activities and limited ROM due pain. A referral to PT was placed while in the office today. If in 6 weeks the patient has not found relief, I would like her to notify the office and we will move forward with an MRI at that time. Follow?up will be in 6 weeks via telehealth, or sooner if needed. X-rays of the left shoulder, obtained on 05/19/2023, revealed: No acute fractures or malalignment. Mild acromioclavicular osteoarthritis. Possible AC joint separation noted. Orders: Orders PT Evaluation and Treatment Today M24.9 - Joint derangement, unspecified, M75.102 - Unspecified rotator cuff tear or rupture of left shoulder, not specified as traumatic Patient Instructions: Scribed by Lorna Macdonald medical claims processor, for Smitha Emery PA-C on 06/01/2023 at 7:54 am, EST.
[2023-06-01 07:55] VITALS: BMI 25.2
== END 2023-06-01 08:43 | disposition home or self-care (01) ==
PROVIDERS: Visit Provider Physician Assistant
DX: M24.812 Other specific joint derangements of left shoulder, not elsewhere classified (principal); M75.102 Unspecified rotator cuff tear or rupture of left shoulder, not specified as traumatic
CPT/HCPCS: 99203

== ENCOUNTER → 2023-06-01 07:52 | Outpatient (BNVA) | payer OTHER, SELFPAY | PROVIDERS: Visit Provider Physician Assistant | DX: M24.9 Joint derangement, unspecified (principal); M75.102 Unspecified rotator cuff tear or rupture of left shoulder, not specified as traumatic | CPT/HCPCS: 99202 ==

== ENCOUNTER 2023-07-17 08:48 | Outpatient (AMB) | payer OTHER, SELFPAY ==
--- NOTE | 2023-07-17 08:45 | MHC.OFFVIS ---
Vital Signs 07/17/23 08:52 Height 5 ft 2 in Weight 138 lb BMI 25.2 Handedness Right Intake Visit Reasons: tele- Left shoulder strain 05/16/23 Intake Note: Cecelia is a 38 year old right hand dominant female who presents today for a telehealth visit for her left shoulder pain, DOI 05/18/23. Patient reports she was in the shower when she slipped, and grabbed onto the shower rail with her left arm and landed on it. Currently is feeling a little better, however she feels that her muscles around the shoulder are weak. Allergies No Known Allergies [No Known Allergies*] Allergy (Verified 07/17/23 08:47) HPI HPI tele- Left shoulder strain 05/16/23: Details: 38-year-old right hand dominant female who presents via a telehealth visit for a follow up of left shoulder pain. I last saw the patient in the office on 06/01/2023 when she was referred to PT. While in the office today the patient reports she is slightly feeling better. She claims the muscles around the left shoulder are weak. Patient confirms attending PT for one month. She reports noticing some slight improvement, but still feels a significant weakness int he left shoulder. [facility] Medical History (Updated 06/01/23 @ 08:38 by Smitha Emery PA-C) No known health problems Surgical History (Updated 06/01/23 @ 07:59 by Kimberly Hampton CMA) Encounter for prophylactic removal of fallopian tube Family History Mother Hypothyroidism Acute arthritis Father No problems noted. 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 Telehealth Telehealth Telehealth Platform: Telephone Location of provider rendering services: practice address Location of patient: address on file Patient Identification confirmed using: Name, : Yes Telehealth method: voice only Patient verbally consented to treatment: Yes Patient verbally consented to billing insurance company: Yes Patient informed of any privacy concerns related to visit: Yes Minutes spent on Phone/Video with Pt.: 5 Assessment & Plan Assessment & Plan (1) AC joint derangement: Code(s): M24.9 - Joint derangement, unspecified Category: Medical (2) Painful arc syndrome of left shoulder: Code(s): M75.102 - Unspecified rotator cuff tear or rupture of left shoulder, not specified as traumatic Category: Medical Plan Ms. Bob is a 38-year-old right hand dominant female who presents via a telehealth visit for a follow up of left shoulder pain. I last saw the patient in the office on 06/01/2023 when she was referred to PT. While in the office today the patient reports she is slightly feeling better. She claims the muscles around the left shoulder are weak. Patient confirms attending PT for one month. She reports noticing some slight improvement, but still feels a significant weakness int he left shoulder. Patient will be referred for an MRI. She will contact the office once the imaging appointment is made. She will follow-up after the MRI is obtained, or sooner if needed. Orders: Orders MR shoulder LT wo con Today M75.102 - Unspecified rotator cuff tear or rupture of left shoulder, not specified as traumatic Patient Instructions: Scribed by Lorna Macdonald medical reception specialist, for Smitha Emery PA-C on 07/17/2023 at 8:53 am, EST. Coding Level of Care Code Tele Est Pt Level 3 (21453) Diagnoses AC joint derangement M24.9 Painful arc syndrome of left shoulder M75.102
[2023-07-17 08:52] VITALS: BMI 25.2
== END 2023-07-17 08:53 | disposition home or self-care (01) ==
LOC: HO.HOS 08:48
PROVIDERS: Visit Provider Physician Assistant
DX: M24.9 Joint derangement, unspecified (principal); M75.102 Unspecified rotator cuff tear or rupture of left shoulder, not specified as traumatic
CPT/HCPCS: 99213

== ENCOUNTER → 2023-07-17 08:48 | Outpatient (BNVA) | payer OTHER, SELFPAY | PROVIDERS: Visit Provider Physician Assistant ==

== ENCOUNTER 2023-08-20 18:07 | Outpatient (REF) | payer OTHER, SELFPAY ==
--- NOTE | ~2023-08-20 | MR_ITS ---
EXAMINATION: MR SHOULDER WITHOUT CONTRAST, LEFT CLINICAL INFORMATION: Left shoulder pain and swelling. Evaluate for a rotator cuff tendon tear. COMPARISON: Left shoulder radiographs dated 05/19/2023. TECHNIQUE: MRI of the shoulder without contrast was performed on a high-field scanner. FINDINGS: Evaluation somewhat limited secondary to patient motion. ROTATOR CUFF: Mild subscapularis tendinosis with distal inferior articular surface fraying measuring up to 1.6 cm in ML dimension. No full-thickness rotator cuff tendon tear. No muscle atrophy or fatty infiltration. BICEPS: Intact. CORACOACROMIAL ARCH: The undersurface of the acromion is curved with no subacromial spur. Mild acromioclavicular osteoarthritis. Trace edema within the subacromial subdeltoid bursa, consistent with minimal bursitis. LABRUM/CAPSULE: Thin, linear fluid signal within the undersurface of the superior labrum which could represent a normal variant sublabral recess versus a nondisplaced undersurface tear. The labrum is otherwise intact. Intact joint capsule. GLENOHUMERAL JOINT/MARROW: Unremarkable. MR/MR shoulder LT wo con IMPRESSION: 1. Mild subscapularis tendinosis with distal inferior articular surface fraying measuring 1.6 cm in ML dimension. No full-thickness rotator cuff tendon tear. 2. Mild acromioclavicular osteoarthritis. 3. Minimal subacromial subdeltoid bursitis. 4. Thin, linear fluid signal within the undersurface of the superior labrum which could represent a normal variant sublabral recess versus a nondisplaced undersurface tear.
== END 2023-08-20 18:08 | disposition home or self-care (01) ==
LOC: HO.MRI 18:07
PROVIDERS: Visit Provider Physician Assistant
DX: M75.102 Unspecified rotator cuff tear or rupture of left shoulder, not specified as traumatic (principal)
CPT/HCPCS: 73221

== ENCOUNTER 2023-08-29 08:03 | Outpatient (AMB) | payer OTHER, SELFPAY ==
--- NOTE | 2023-08-29 08:17 | MHC.OFFVIS ---
Intake Visit Reasons: OV- LT shoulder MRI review Intake Note: Cecelia is a 38 year old female who presents today for a MRI review of her left shoulder. Patient reports she pain hasn't changed but her ROM has gotten a little better. Allergies No Known Allergies [No Known Allergies*] Allergy (Verified 08/29/23 08:26) HPI HPI OV- LT shoulder MRI review: Details: 38-year-old right hand dominant female who presents in the office today for a review of her MRI results and follow-up of left shoulder pain. I last saw the patient in the office on 07/17/2023 when the MRI was ordered. ? ? While in the office today, the patient reports her pain has not changed. She states that she feels the pain is more muscular and describes it as knotting. She has noticed a mild improvement in her ROM.? ? Patient confirms being seen by a massage therapist, but cannot afford to continue to attend. She states the therapist informed her she was able to feel the knots. ? [facility] Medical History (Updated 06/01/23 @ 08:38 by Smitha Emery PA-C) No known health problems Surgical History (Updated 06/01/23 @ 07:59 by Kimberly Hampton CMA) Encounter for prophylactic removal of fallopian tube Family History Mother Hypothyroidism Acute arthritis Father No problems noted. 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 No ecchymosis, erythema, or edema. Forward flexion lacking 15 degrees. Abduction to 90 degrees. Able to reach T-12. Full external rotation. Pain with cross-body reach. 4/5 strength with empty can. Negative drop arm. NVI. Assessment & Plan Assessment & Plan (1) AC joint derangement: Code(s): M24.9 - Joint derangement, unspecified Category: Medical (2) Painful arc syndrome of left shoulder: Code(s): M75.102 - Unspecified rotator cuff tear or rupture of left shoulder, not specified as traumatic Category: Medical Plan Ms. Bob is a 38-year-old right hand dominant female who presents in the office today for a review of her MRI results and follow-up of left shoulder pain. I last saw the patient in the office on 07/17/2023 when the MRI was ordered. ? ? While in the office today, the patient reports her pain has not changed. She states that she feels the pain is more muscular and describes it as knotting. She has noticed a mild improvement in her ROM.? ? Patient confirms being seen by a massage therapist, but cannot afford to continue to attend. She states the therapist informed her she was able to feel the knots.? ? Discussed the role of trigger point injections in the left shoulder and the patient would like to move forward with this at this time. Therefore, a referral will be placed for the patient to be evaluated by Physiatry for further evaluation and treatmen to see if she would be a candidate for this procedure. Follow-up will be PRN, or sooner if needed. ? ? MRI of the left shoulder, obtained on 08/20/2023, revealed:? 1. Mild subscapularis tendinosis with distal inferior articular surface fraying measuring 1.6 cm in ML dimension. No full-thickness rotator cuff tendon tear.? 2. Mild acromioclavicular osteoarthritis.? 3. Minimal subacromial subdeltoid bursitis.? 4. Thin, linear fluid signal within the undersurface of the superior labrum which could represent a normal variant sublabral recess versus a nondisplaced undersurface tear? Patient Instructions: Scribed by diallo Serna scribe, for Smitha Emery PA-C on 08/29/2023 at 8:12 am, EST.? Coding Level of Care Code Est Pt Level 4 (91720) Diagnoses AC joint derangement M24.9 Painful arc syndrome of left shoulder M75.102
== END 2023-08-29 08:32 | disposition home or self-care (01) ==
PROVIDERS: Visit Provider Physician Assistant
DX: M75.102 Unspecified rotator cuff tear or rupture of left shoulder, not specified as traumatic (principal); M24.9 Joint derangement, unspecified
CPT/HCPCS: 99213

== ENCOUNTER → 2023-08-29 08:03 | Outpatient (BNVA) | payer OTHER, SELFPAY | PROVIDERS: Visit Provider Physician Assistant | DX: M75.102 Unspecified rotator cuff tear or rupture of left shoulder, not specified as traumatic (principal); M24.9 Joint derangement, unspecified | CPT/HCPCS: 99212 ==

== ENCOUNTER 2023-09-13 08:50 | Outpatient (AMB) | payer OTHER, SELFPAY ==
--- NOTE | 2023-09-13 08:53 | A.OFFVIS_ITS ---
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 Pt states she had fallen in the shower in May and fell on her shoulder. Pt states she has tried PT for 2 months which she states only helped her ROM. She states she has tightness in her shoulder and sharp pains occasionally that go into her neck. Pt also states she has numbness and tingling in the back of her head. Pt states she also has degenerative disks. Pt had a shoulder MRI done on 08/20/23. Allergies No Known Allergies [No Known Allergies*] Allergy (Verified 09/13/23 08:53) Medication List - Last Reconciled 09/13/23 by Paris Solomon MD norethindrone (contraceptive) 0.35 mg PO DAILY HPI Comments Details: Ongoing left shoulder for last 3 months, after a fall in the shower and grabbed to hold her up. Had poor ROM which improved with PT. Still feels weak despite the exercises. Points to left trapezius to rhomboids, left but also feeling to right. Non radicular to arm. No hand numbness. But feels numbness/tingling to posterior neck, tightness, with posterior neck pain and headache. Denies history of shoulder dislocation and subluxation. Chronic upper and lower back pain. Sports injury, rib fractures, playing ice hockey. Was told to have degenerative disc cervical. Last PT in June-July 2023. No injections. Uses warm packs with relief. 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 [facility] Medical History (Updated 09/13/23 @ 10:03 by Paris Solomon MD) Myofascial pain No known health problems Surgical History (Updated 06/01/23 @ 07:59 by Kimberly Hampton CMA) Encounter for prophylactic removal of fallopian tube Family History Mother Hypothyroidism Acute arthritis Father No problems noted. 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 Patient was appropriately conversant and oriented. Good historian. MSK: Inspection reveals appropriate head and neck positioning. Trigger points noted on left trapezius, rhomboids, thoracic paraspinals. Tightness but not as much trigger points on right trapezius or rhomboids. Cervical ROM was full. Spurling's sign negative. Bilateral shoulder, elbow and wrist ROM WNL. No ligamentous laxity or crepitance. No increased effusion. Indicates tenderness over left AC joint. Negative Soares sign. Negative empty can sign. Negative speed's test. Negative relocation test. No specific abnormalities or instability found on inspection and palpation of the spine and extremities. Lumbar ROM was full. Strength is 5/5 in all muscle groups tested. No increased tone noted. Neurological: Neurologic examination of the upper and lower extremities was nonfocal with intact sensation, muscle stretch reflexes and without focal motor deficits . Avila?s negative bilaterally. Babinski was down going bilaterally. Clonus was negative. Gait is non-antalgic without loss of balance. Results Reviewed Results Reviewed: Ordering Physician: Smitha Emery PA-C Date of Service: 08/20/23 Procedure(s): MR shoulder LT wo con Accession Number(s): [id number] cc: Smitha Emery PA-C~ EXAMINATION: MR SHOULDER WITHOUT CONTRAST, LEFT CLINICAL INFORMATION: Left shoulder pain and swelling. Evaluate for a rotator cuff tendon tear. COMPARISON: Left shoulder radiographs dated 05/19/2023. TECHNIQUE: MRI of the shoulder without contrast was performed on a high-field scanner. FINDINGS: Evaluation somewhat limited secondary to patient motion. ROTATOR CUFF: Mild subscapularis tendinosis with distal inferior articular surface fraying measuring up to 1.6 cm in ML dimension. No full-thickness rotator cuff tendon tear. No muscle atrophy or fatty infiltration. BICEPS: Intact. CORACOACROMIAL ARCH: The undersurface of the acromion is curved with no subacromial spur. Mild acromioclavicular osteoarthritis. Trace edema within the subacromial subdeltoid bursa, consistent with minimal bursitis. LABRUM/CAPSULE: Thin, linear fluid signal within the undersurface of the superior labrum which could represent a normal variant sublabral recess versus a nondisplaced undersurface tear. The labrum is otherwise intact. Intact joint capsule. GLENOHUMERAL JOINT/MARROW: Unremarkable. MR/MR shoulder LT wo con IMPRESSION: 1. Mild subscapularis tendinosis with distal inferior articular surface fraying measuring 1.6 cm in ML dimension. No full-thickness rotator cuff tendon tear. 2. Mild acromioclavicular osteoarthritis. 3. Minimal subacromial subdeltoid bursitis. 4. Thin, linear fluid signal within the undersurface of the superior labrum which could represent a normal variant sublabral recess versus a nondisplaced undersurface tear. EXAMINATION: XR SHOULDER, LEFT CLINICAL INFORMATION: Fall. COMPARISON: None available. TECHNIQUE: Three views of the left shoulder. FINDINGS: There is mild acromioclavicular osteoarthritis. Glenohumeral joint is well preserved. No fracture. Alignment is anatomic. Soft tissues are normal with no abnormal calcifications. XR/XR shoulder LT min 2V IMPRESSION: No acute fractures or malalignment. Mild acromioclavicular osteoarthritis. I reviewed records from the following: Orthopedic Assessment & Plan Assessment & Plan (1) Myofascial pain: Code(s): M79.18 - Myalgia, other site Category: Medical (2) Impingement syndrome of left shoulder: Code(s): M75.42 - Impingement syndrome of left shoulder Category: Medical Plan Patient showing signs of left shoulder impingement syndrome with secondary myofascial pain affecting trapezius, rhomboids and even thoracic paraspinals. No signs of cervical radiculopathy or myelopathy. No signs of labral tear on exam despite MRI findings. No signs of rotator cuff tear. Patient is motivated to continue stretching and heating pads at home. But requesting a little bit more help/intervention. We could give this to her by performing shoulder injection left side and trigger point injections trapezius and rhomboids, possibly thoracic paraspinals. Patient eager to proceed. We will schedule. Assessment and plan discussed with patient, and patient was agreeable. All questions were answered thoroughly. Paris Solomon MD, ALMA Board Certified, [place] Board of Physical Medicine and Rehabilitation (ABPMR) Board Certified, [place] Board of Electrodiagnostic Medicine (ABEM) Coding Level of Care Code New Pt Level 4 (45221) Diagnoses Myofascial pain M79.18 Impingement syndrome of left shoulder M75.42
== END 2023-09-13 09:28 | disposition home or self-care (01) ==
PROVIDERS: Visit Provider Physical Medicine & Rehabilitation
DX: M79.18 Myalgia, other site (principal); M75.42 Impingement syndrome of left shoulder
CPT/HCPCS: 99204

== ENCOUNTER → 2023-09-13 08:50 | Outpatient (BNVA) | payer OTHER, SELFPAY | PROVIDERS: Visit Provider Physical Medicine & Rehabilitation | DX: M79.18 Myalgia, other site (principal); M75.42 Impingement syndrome of left shoulder | CPT/HCPCS: 99202 ==

== ENCOUNTER 2023-09-19 10:43 | Outpatient (AMB) | payer OTHER, SELFPAY ==
--- NOTE | 2023-09-19 10:58 | A.OFFVIS_ITS ---
Intake Visit Reasons: Inj-trigger point injection #1 Intake Note: Cecelia is a 38 year old female who presents to the office today for left shoulder injection and trigger point injection #1. Allergies No Known Allergies [No Known Allergies*] Allergy (Verified 09/19/23 11:08) Medication List - Last Reconciled 09/19/23 by Paris Solomon MD norethindrone (contraceptive) 0.35 mg PO DAILY PFS Medical History (Updated 09/13/23 @ 10:03 by Paris Solomon MD) Myofascial pain No known health problems Surgical History (Updated 06/01/23 @ 07:59 by Kimberly Hampton CMA) Encounter for prophylactic removal of fallopian tube Family History Mother Hypothyroidism Acute arthritis Father No problems noted. 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 The distal, lateral, and posterior edges of the left acromion are palpated. Area is cleansed with betadine solution. A 27 gauge needle is inserted just inferior to the posterolateral edge of the acromion. The needle is directed toward the opposite nipple. A solution containing [40 mg] Kenalog and [3 ml] of 2% Lidocaine is injected. Subsequently, using a different 27 gauge needle, dry needle done on a trigger point on left upper trapezius, injecting 1 mL of 2% lidocaine. Patient tolerated procedure well without complications. Post-injection instructions given. 65554-Phzpxni Point Injection 1 or 2 sites All charges added?: Procedure code (CPT) selection complete Assessment & Plan Assessment & Plan (1) Impingement syndrome of left shoulder: Code(s): M75.42 - Impingement syndrome of left shoulder Category: Medical (2) Myofascial pain: Code(s): M79.18 - Myalgia, other site Category: Medical Plan Tolerated procedure well. Post-injection instructions given. Assessment and plan discussed with patient, and patient was agreeable. All questions were answered thoroughly. Next report injection 2 weeks. Paris Solomon MD, ALMA Board Certified, [place] Board [employer] and Rehabilitation (ABPMR) Board Certified, [place] Board [employer] Electrodiagnostic Medicine (ABEM) Orders: Orders AMB Trigger Point Injection Today M75.42 - Impingement syndrome of left shoulder, M79.18 - Myalgia, other site AMB Joint Injection/Aspiration Today M75.42 - Impingement syndrome of left shoulder, M79.18 - Myalgia, other site Coding Level of Care Code Procedure Only Diagnoses Impingement syndrome of left shoulder M75.42 Myofascial pain M79.18 CPT Codes Coding - 92413 Large joint: 69918 - Large joint ([id number]) Therapeutic Injection - Ther Injection 1: 69523-Wqtukoz Point Injection 1 or 2 sites ([id number])
== END 2023-09-19 11:18 | disposition home or self-care (01) ==
PROVIDERS: Visit Provider Physical Medicine & Rehabilitation
DX: M75.42 Impingement syndrome of left shoulder (principal); M79.18 Myalgia, other site
CPT/HCPCS: 20552; 20610

== ENCOUNTER → 2023-09-19 10:43 | Outpatient (BNVA) | payer OTHER, SELFPAY | PROVIDERS: Visit Provider Physical Medicine & Rehabilitation | DX: M75.42 Impingement syndrome of left shoulder (principal); M79.18 Myalgia, other site | CPT/HCPCS: 20552; 20610; J2003; J3301 ==

== ENCOUNTER 2023-10-24 12:51 | Outpatient (AMB) | payer OTHER, SELFPAY ==
--- NOTE | 2023-10-24 12:53 | A.OFFVIS_ITS ---
Intake Visit Reasons: Inj-trigger point injection #2 Intake Note: Cecelia is a 38 year old female who presents to the office today for left shoulder injection and trigger point injection #2. Patient reports last injection, done 09/19/23 which she states was helpful. Allergies No Known Allergies [No Known Allergies*] Allergy (Verified 10/24/23 12:53) HPI Comments Details: Did well after 1st trigger point injection. Good left shoulder range of motion after steroid injection. [facility] Medical History (Updated 09/13/23 @ 10:03 by Paris Solomon MD) Myofascial pain No known health problems Surgical History (Updated 06/01/23 @ 07:59 by Kimberly Hampton CMA) Encounter for prophylactic removal of fallopian tube Family History Mother Hypothyroidism Acute arthritis Father No problems noted. 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 Conset obtained. Trigger points palpated, 2 on left upper trapezius, 1 in right upper trapezius, 1 on left rhomboids. 1 ml of 2% Lidocaine injected in each site, total of 4 mL. Patient tolerated procedure well. Post-injection instructions given. 19040-Emqudjc Point Injection 3 or more All charges added?: Procedure code (CPT) selection complete Assessment & Plan Assessment & Plan (1) Myofascial pain: Code(s): M79.18 - Myalgia, other site Category: Medical Plan Tolerated procedure well. Assessment and plan discussed with patient, and patient was agreeable. All questions were answered thoroughly. Last injection next week. Paris Solomon MD, ALMA Board Certified, [place] Board [employer] Physical Medicine and Rehabilitation (ABPMR) Board Certified, [place] Board of Electrodiagnostic Medicine (ABEM) Orders: Orders AMB Trigger Point Injection Today M79.18 - Myalgia, other site Coding Level of Care Code Procedure Only Diagnoses Myofascial pain M79.18 CPT Codes Therapeutic Injection - Ther Injection 2: 28901-Fxomyne Point Injection 3 or more ([id number])
== END 2023-10-24 13:13 | disposition home or self-care (01) ==
PROVIDERS: Visit Provider Physical Medicine & Rehabilitation
DX: M79.18 Myalgia, other site (principal); M25.511 Pain in right shoulder; M25.512 Pain in left shoulder
CPT/HCPCS: 20553

== ENCOUNTER → 2023-10-24 12:51 | Outpatient (BNVA) | payer OTHER, SELFPAY | PROVIDERS: Visit Provider Physical Medicine & Rehabilitation | DX: M79.18 Myalgia, other site (principal) | CPT/HCPCS: 20553 ==

== ENCOUNTER 2023-12-06 08:50 | Outpatient (AMB) | payer OTHER, SELFPAY ==
[2023-12-06 08:55] VITALS: BMI 25.2
--- NOTE | 2023-12-06 08:55 | A.OFFVIS_ITS ---
Vital Signs 12/06/23 08:55 Height 5 ft 2 in Weight 138 lb BMI 25.2 Intake Visit Reasons: Inj-trigger point injection #3 Intake Note: Cecelia is a 38 year old female who presents to the office today for a trigger point injection #3. Patient reports last injection given 10/24/23 provided relief therefore she wishes to proceed with injection today. Allergies No Known Allergies [No Known Allergies*] Allergy (Verified 12/06/23 08:56) HPI Comments Details: Last injection was 10/24/2023 with good results. Has been about 5-6 weeks since and she has been doing much better. Some stiffness but no pain. Maybe coming back a little bit this week. One area in the left rhomboids that we did not inject continues to hurt her. [facility] Medical History (Updated 09/13/23 @ 10:03 by Paris Solomon MD) Myofascial pain No known health problems Surgical History (Updated 06/01/23 @ 07:59 by Kimberly Hampton CMA) Encounter for prophylactic removal of fallopian tube Family History Mother Hypothyroidism Acute arthritis Father No problems noted. Social History Housing: Apartment Alcohol intake: current Alcohol intake frequency: a few times a month Patient Tobacco Use Status: Current everyday Tobacco user Tobacco use type: Cigarette Cigarette Packs Per Day: 0.5 Cigarettes Per Day: 10 Years Smoked: 20 e-Cigarette/Vaping Use: Never Used Substance Use Type: Marijuana service: No Current occupational status: employed Current occupation: [employer] Cognitive needs: No Hearing needs: No Vision needs: No Physical Exam Vital Signs: BMI result Body Mass Index 25.2 Office Procedures Therapeutic Injection Therapeutic Injection Details: Trigger point injection, trapezius and rhomboids. Conset obtained. Trigger points palpated, 1 on left upper trapezius, 1 right upper trapezius, 3 on left rhomboids, 1 on right rhomboids. 1 ml of 2% Lidocaine injected in each site, total of 6 mL. Patient tolerated procedure well. Post-injection instructions given. [id number] Point Injection 3 or more All charges added?: Procedure code (CPT) selection complete Assessment & Plan Assessment & Plan (1) Myofascial pain: Code(s): M79.18 - Myalgia, other site Category: Medical Plan Tolerated procedure well. Assessment and plan discussed with patient, and patient was agreeable. All questions were answered thoroughly. Follow up in 2 months. Paris Solomon MD, ALMA Board Certified, [place] [employer] (ABPMR) Board Certified, [place] [employer] (ABEM) Orders: Orders AMB Trigger Point Injection Today M79.18 - Myalgia, other site Coding Level of Care Code Procedure Only Diagnoses Myofascial pain M79.18 CPT Codes Therapeutic Injection - Ther Injection 2: [id number] Point Injection 3 or more ([id number])
== END 2023-12-06 09:26 | disposition home or self-care (01) ==
PROVIDERS: Visit Provider Physical Medicine & Rehabilitation
DX: M79.18 Myalgia, other site (principal); M25.511 Pain in right shoulder; M25.512 Pain in left shoulder
CPT/HCPCS: 20553

== ENCOUNTER → 2023-12-06 08:50 | Outpatient (BNVA) | payer OTHER, SELFPAY | PROVIDERS: Visit Provider Physical Medicine & Rehabilitation | DX: M79.18 Myalgia, other site (principal) | CPT/HCPCS: 20553; J2003 ==